=== PATIENT | male | born 1995 | race Two or more races ===

== ENCOUNTER 2021-01-18 15:50 | Emergency (ER) | payer SELFPAY ==
[~2021-01-18] VITALS: Ht 193 cm; Wt 99.8 kg
[2021-01-18] MEDS ORDERED: KETOROLAC TROMETH 60MG/2ML VIAL IM ONE (19:15)
[2021-01-18] MEDS ORDERED: methylPREDNISolone SOD SUCC 125 MG/2 ML VL IM ONE (19:15)
[2021-01-18 19:38] VITALS: BP 117/65
== END 2021-01-18 19:37 | disposition home or self-care (01) ==
LOC: ER 15:50
DX: S42.291A Other displaced fracture of upper end of right humerus, initial encounter for closed fracture (principal); V28.0XXA Motorcycle driver injured in noncollision transport accident in nontraffic accident, initial encounter; Y93.89 Activity, other specified; Y92.410 Unspecified street and highway as the place of occurrence of the external cause; Y99.8 Other external cause status
CPT/HCPCS: 72125; 73200; 96372; 99284; J1885; J2930